=== PATIENT | male | born 1945 | race Caucasian/White ===

== ENCOUNTER → 2017-04-17 | Outpatient (CLI) | payer MEDICARE ==
[~2017-04-17] VITALS: Ht 172.7 cm; Wt 135.2 kg
[~2017-04-17] MED LIST: ALLO100T PO; ALLO10TA PO; AMLO10TA2 PO; ASPI81TA7 PO; ATOR1TAB19 PO; CENTTAB47 PO; GLIP10TA13 PO; LANTINJ4 SC; LIDOCAINE 2% INJ 100 MG/5 ML SDV (FOR ANES.) As Ordered ONE; LISI40TAB PO; METF500T PO; METO-209 PO; METO100T PO; NS 1,000 ML IV ONE; PROPOFOL 200 MG/20 ML VIAL As Ordered ONE
--- NOTE | 2017-04-17 09:52 | ROOR ---
Patient Name: Isacc Nichols Procedure Date: 04/17/2017 9:29 AM Date of : 1945 Age: 71 Room: [facility] Gender: Male Note Status: Finalized Procedure: Total Colonoscopy to Cecum Indications: High risk colon cancer surveillance: Personal history of colonic polyps, Last colonoscopy: 2014 Providers: Tayo Vargas MD Referring MD: Epi Mcgregor MD Requesting Provider: Medicines: Monitored Anesthesia Care Complications: No immediate complications. Procedure: Pre-Anesthesia Assessment: - The heart rate, respiratory rate, oxygen saturations, blood pressure, adequacy of pulmonary ventilation, and response to care were monitored throughout the procedure. The Colonoscope was introduced through the anus and advanced to the cecum, identified by appendiceal orifice and ileocecal valve. The colonoscopy was performed without difficulty. The patient tolerated the procedure well. The quality of the bowel preparation was excellent. Findings: The perianal and digital rectal examinations were normal. Non-bleeding internal hemorrhoids were found during retroflexion. The hemorrhoids were small and Grade I (internal hemorrhoids that do not prolapse). Scattered small-mouthed diverticula were found in the recto-sigmoid colon, sigmoid colon and descending colon. The exam was otherwise without abnormality on direct and retroflexion views. Impression: - Non-bleeding internal hemorrhoids. - Diverticulosis in the recto-sigmoid colon, in the sigmoid colon and in the descending colon. - The examination was otherwise normal on direct and retroflexion views. - No specimens collected. - The exam was otherwise normal to the cecum. Recommendation: - Patient has a contact number available for emergencies. The signs and symptoms of potential delayed complications were discussed with the patient. Return to normal activities tomorrow. Written discharge instructions were provided to the patient. - High fiber diet. - Discharge patient to home. - Continue present medications. - Repeat colonoscopy in 5 years for screening purposes. - Return to referring physician. - The findings and recommendations were discussed with the patient's family. Tayo Vargas MD Tayo Vargas MD 04/17/2017 9:52:37 AM This report has been signed electronically. Number of Addenda: 0 Note Initiated On: 04/17/2017 9:29 AM Estimated Blood Loss: Estimated blood loss: none.
[2017-04-17 10:10] VITALS: BP 133/61
== END | disposition home or self-care (01) ==
LOC: M OPP 08:43
PROVIDERS: ATTEND Internal Medicine Gastroenterology
DX: Z12.11 Encounter for screening for malignant neoplasm of colon (principal); K64.0 First degree hemorrhoids; K57.30 Diverticulosis of large intestine without perforation or abscess without bleeding; Z86.010 Personal history of colon polyps; I10 Essential (primary) hypertension; E78.5 Hyperlipidemia, unspecified; E11.9 Type 2 diabetes mellitus without complications; M10.9 Gout, unspecified; R12 Heartburn; R06.83 Snoring; Z88.8 Allergy status to other drugs, medicaments and biological substances; Z91.013 Allergy to seafood; Z79.899 Other long term (current) drug therapy; Z79.4 Long term (current) use of insulin

== ENCOUNTER 2022-08-29 14:59 | Emergency (ER) | payer MEDICARE ==
[~2022-08-29] VITALS: Ht 170.2 cm; Wt 125.4 kg
[~2022-08-29 14:59] MED LIST changes: -AMLO10TA2 PO; +AMLO1TAB25 PO; +ASPI-546 PO; -ASPI81TA7 PO; -GLIP10TA13 PO; +GLIP10TA18 PO; -LIDOCAINE 2% INJ 100 MG/5 ML SDV (FOR ANES.) As Ordered ONE; +LISI40TA4 PO; +LISI40TA52 PO; -LISI40TAB PO; -METF500T PO; +METF500T13 PO; -METO-209 PO; -METO100T PO; +METO100T5 PO; +METO1TAB33 PO; -NS 1,000 ML IV ONE; -PROPOFOL 200 MG/20 ML VIAL As Ordered ONE
[2022-08-29] MEDS ORDERED: JANU100T (15:10)
[2022-08-29] MEDS ORDERED: LIDOCAINE W/EPINEPHRINE 1% 20ML VIAL SC ONE (19:40)
[2022-08-29] MEDS ORDERED: CEPHALEXIN 500 MG CAP PO ONE (20:05)
[2022-08-29] MEDS ORDERED: CEPH500C PO (20:05)
[2022-08-29] MEDS ORDERED: NEOSPORIN OINT 0.9 GM PKT TOP ONE (20:05)
[2022-08-29] MEDS ORDERED: BOOSTRIX/ADACEL VACCINE (DIPHTH/PERTUSS/ACELL/TETANUS) 0.5ML SYR IM ONE (20:05)
[2022-08-29 20:49] VITALS: BP 158/83
== END 2022-08-29 20:26 | disposition home or self-care (01) ==
LOC: M ED 14:59
DX: S51.012A Laceration without foreign body of left elbow, initial encounter (principal); W01.0XXA Fall on same level from slipping, tripping and stumbling without subsequent striking against object, initial encounter; E11.9 Type 2 diabetes mellitus without complications; I10 Essential (primary) hypertension; E66.9 Obesity, unspecified; Z88.6 Allergy status to analgesic agent; Z91.013 Allergy to seafood; Y92.480 Sidewalk as the place of occurrence of the external cause; Y93.9 Activity, unspecified; Y99.9 Unspecified external cause status

== ENCOUNTER → 2022-11-09 | Outpatient (CLI) | payer MEDICARE ==
[~2022-11-09] MED LIST changes: +CEPH500C PO; +JANU100T
== END ==
LOC: M PLARAD 12:49
PROVIDERS: ATTEND Nurse Practitioner
DX: M47.896 Other spondylosis, lumbar region (principal); M51.26 Other intervertebral disc displacement, lumbar region; M51.27 Other intervertebral disc displacement, lumbosacral region

== ENCOUNTER → 2022-11-30 | Outpatient (REF) | payer MEDICARE | LOC: M SMT 13:17 | PROVIDERS: ATTEND Urology | DX: C61 Malignant neoplasm of prostate (principal) ==

== ENCOUNTER 2022-12-30 03:56 | Inpatient (IN) | payer MEDICARE ==
[~2022-12-30] VITALS: Ht 167.6 cm; Wt 135.4 kg
[~2022-12-30 03:56] MED LIST changes: -JANU100T; +JANU100T PO
[2022-12-30 04:55] LABS: BASO % 0.2 % (0.0-1.0); EOS # 0.2 10^3/uL (0.0-0.5); EOS % 0.8 % (0.0-3.0); HEMATOCRIT 36.9 % (42.0-52.0); HEMOGLOBIN 11.9 g/dl (13.5-17.5); LYMPH # 0.9 10^3/uL (1.5-5.0); LYMPH % 5.2 % (24.0-44.0); MEAN CORPUSCULAR HEMOGLOBIN 28.7 pg (27.0-33.0); MEAN CORPUSCULAR HGB CONC 32.2 g/dl (32.0-36.5); MEAN CORPUSCULAR VOLUME 89.1 fl (80.0-96.0); MONO % 9.3 % (2.0-8.0); PLATELET COUNT, AUTOMATED 271 10^3/uL (150-450); RED BLOOD COUNT 4.14 10^6/uL (4.30-6.10); WHITE BLOOD COUNT 17.9 10^3/uL (4.0-10.0)
[2022-12-30 05:09] LABS: MONO # 1.7 10^3/uL (0.0-0.8)
[2022-12-30 05:31] LABS: CK-MB VALUE MASS < 1.0 NG/ML (<3.6)
[2022-12-30 05:32] LABS: ALBUMIN 2.6 G/DL (3.2-5.2); ALKALINE PHOSPHATASE 93 U/L (46-116); ALT/SGPT 22 U/L (7.0-40); AST/SGOT 30 U/L (<34); BILIRUBIN,TOTAL 0.7 MG/DL (0.3-1.2); BLOOD UREA NITROGEN 52 MG/DL (9-23); CALCIUM LEVEL 8.2 MG/DL (8.3-10.6); CARBON DIOXIDE LEVEL 29 MMOL/L (20-31); CHLORIDE LEVEL 102 MMOL/L (98-107); CREATININE FOR GFR 2.49 MG/DL (0.70-1.30); GLOMERULAR FILTRATION RATE 26.9 (>42); GLUCOSE, FASTING 167 MG/DL (74-106); MAGNESIUM LEVEL 2.1 MG/DL (1.8-2.4); POTASSIUM SERUM 4.3 MMOL/L (3.5-5.1); SODIUM LEVEL 137 MMOL/L (136-145); TOTAL PROTEIN 6.2 G/DL (5.7-8.2)
[2022-12-30 05:33] LABS: CPK CREATINE PHOSPHOKINASE 60 U/L (46-171); MB/CK RELATIVE INDEX 1.66 (< OR =4)
[2022-12-30] MEDS ORDERED: FUROSEMIDE 20MG/2ML VIAL IV ONE (06:25)
[2022-12-30 09:18] LABS: RSV AMPLIFICATION NEGATIVE (NEGATIVE)
[2022-12-30] MEDS ORDERED: GLUCAGON INJ 1MG VIAL SC PRN (10:55)
[2022-12-30] MEDS ORDERED: DEXTROSE 50% 50ML SYRINGE IV PRN (10:55)
[2022-12-30] MEDS ORDERED: GLUCOSE 4GM CHEW TABLET PO PRN (10:55)
[2022-12-30] MEDS ORDERED: FURO20TA2 PO (11:31)
[2022-12-30] MEDS ORDERED: HYDR12.55 PO (11:31)
[2022-12-30] MEDS ORDERED: METO100T5 PO (11:31)
[2022-12-30] MEDS ORDERED: TIZA10TA PO (11:31)
[2022-12-30] MEDS ORDERED: ATOR1TAB21 PO (11:31)
[2022-12-30] MEDS ORDERED: PREG100C PO (11:31)
[2022-12-30] MEDS ORDERED: HOME MED LIST COMPLETE! XX SCH (11:40)
[2022-12-30] MEDS: LR 1,000 ML IV SCH ×2 (12:25→21:40)
[2022-12-30 12:52] VITALS: BP 120/72
[2022-12-30] MEDS: ASPIRIN 81MG ENTERIC TABLET PO SCH (13:54)
[2022-12-30] MEDS: INSULIN LISPRO (NovoLOG) PER UNIT SC SCH ×3 (13:55→21:00)
[2022-12-30] MEDS: METOPROLOL TARTRATE 100MG TAB PO SCH ×2 (13:56→21:40)
[2022-12-30] MEDS: PREGABALIN 100 MG CAP (LYRICA) PO SCH ×2 (16:39→21:40)
[2022-12-30 18:00] VITALS: BP 120/73
[2022-12-30 20:20] VITALS: BP 114/60
[2022-12-30] MEDS ORDERED: ACETAMINOPHEN TAB 650MG DOSE (2X325MG) PO PRN (20:25)
[2022-12-30] MEDS: LEVEMIR (INSULIN DETEMIR) 1 UNITS/0.01ML SC SCH (21:00)
[2022-12-30] MEDS ORDERED: LEVEMIR (INSULIN DETEMIR) 1 UNITS/0.01ML SC ONE (21:00)
[2022-12-30] MEDS: HEPARIN SOD (PORCINE) 5000UNITS/ML 1ML VIAL/SYRINGE SC SCH (21:29)
[2022-12-30 21:30] VITALS: BP 128/70
[2022-12-30] MEDS: tiZANidine 4 MG TAB PO SCH (21:40)
[2022-12-30] MEDS: ATORVASTATIN 20 MG TAB PO SCH (21:40)
[2022-12-30 23:54] VITALS: BP 104/53
[2022-12-31 02:00] VITALS: BP 103/53
[2022-12-31 04:05] VITALS: BP 130/71
[2022-12-31 04:38] LABS: ABG BASE EXCESS 3.1 (-2.0-2.0); ABG HCO3 27.5 MEQ/L (22.0-26.0); ABG O2 SATURATION 97.5 % (95.0-99.0); ABG PARTIAL PRESSURE CO2 41.3 mmHg (35.0-45.0); ABG PARTIAL PRESSURE O2 101.3 mmHg (75.0-100.0); ABG STANDARD HCO3 27.2 MEQ/L (22.0-26.0); ABG TOTAL CO2 28.8 MEQ/L (23.0-31.0); ABG pH (ARTERIAL) 7.441 UNITS (7.350-7.450)
[2022-12-31 05:33] LABS: HEMATOCRIT 36.6 % (42.0-52.0); HEMOGLOBIN 11.7 g/dl (13.5-17.5); MEAN CORPUSCULAR HEMOGLOBIN 28.7 pg (27.0-33.0); MEAN CORPUSCULAR VOLUME 89.9 fl (80.0-96.0); PLATELET COUNT, AUTOMATED 250 10^3/uL (150-450); RED BLOOD COUNT 4.07 10^6/uL (4.30-6.10); WHITE BLOOD COUNT 11.6 10^3/uL (4.0-10.0)
[2022-12-31 05:42] VITALS: BP 110/63
[2022-12-31 05:45] LABS: INR 1.21; PROTHROMBIN TIME 15.6 SECONDS (12.5-14.5)
[2022-12-31 05:46] LABS: PARTIAL THROMBOPLASTIN TIME 34.8 SECONDS (24.8-34.2)
[2022-12-31 05:58] LABS: CREATININE FOR GFR 2.16 MG/DL (0.70-1.30); GLOMERULAR FILTRATION RATE 31.7 (>42); POTASSIUM SERUM 3.9 MMOL/L (3.5-5.1)
[2022-12-31] MEDS: NYSTATIN 100,000 UNITS/GM TOPICAL PWD 15GM TOP SCH ×2 (06:47→21:48)
[2022-12-31] MEDS: HEPARIN SOD (PORCINE) 5000UNITS/ML 1ML VIAL/SYRINGE SC SCH ×3 (06:50→21:48)
[2022-12-31] MEDS: INSULIN LISPRO (NovoLOG) PER UNIT SC SCH ×4 (11:47→21:00)
[2022-12-31 11:49] LABS: CHOLESTEROL RISK RATIO 3.95 (<5); HDL CHOLESTEROL 27.8 MG/DL (>40); LDL CHOLESTEROL 70.2 MG/DL (<100)
[2022-12-31 12:24] LABS: HEMOGLOBIN A1c 7.3 % (4.0-6.0)
[2022-12-31] MEDS: PREGABALIN 100 MG CAP (LYRICA) PO SCH ×2 (13:16→21:49)
[2022-12-31] MEDS: ASPIRIN 81MG ENTERIC TABLET PO SCH (13:17)
[2022-12-31] MEDS: METOPROLOL TARTRATE 100MG TAB PO SCH ×2 (13:20→21:50)
[2022-12-31] MEDS: LEVEMIR (INSULIN DETEMIR) 1 UNITS/0.01ML SC SCH ×2 (13:21→21:48)
[2022-12-31] MEDS: LR 1,000 ML IV SCH (13:22)
[2022-12-31] MEDS ORDERED: LR 500 ML IV ONE (14:00)
[2022-12-31 20:45] VITALS: BP 117/69
[2022-12-31] MEDS: tiZANidine 4 MG TAB PO SCH (21:00)
[2022-12-31] MEDS: ATORVASTATIN 20 MG TAB PO SCH (21:48)
[2023-01-01] VITALS (9 sets, daily range): BP systolic 112–142; BP diastolic 60–77
[2023-01-01] MEDS: HEPARIN SOD (PORCINE) 5000UNITS/ML 1ML VIAL/SYRINGE SC SCH ×3 (05:18→21:30)
[2023-01-01 06:29] LABS: BASO % 0.4 % (0.0-1.0); EOS # 0.4 10^3/uL (0.0-0.5); EOS % 3.6 % (0.0-3.0); HEMATOCRIT 36.4 % (42.0-52.0); HEMOGLOBIN 11.4 g/dl (13.5-17.5); LYMPH # 1.1 10^3/uL (1.5-5.0); LYMPH % 10.5 % (24.0-44.0); MEAN CORPUSCULAR HEMOGLOBIN 28.7 pg (27.0-33.0); MEAN CORPUSCULAR HGB CONC 31.3 g/dl (32.0-36.5); MEAN CORPUSCULAR VOLUME 91.7 fl (80.0-96.0); MONO # 0.8 10^3/uL (0.0-0.8); MONO % 8.4 % (2.0-8.0); NEUTROPHILS # 7.7 10^3/uL (1.5-8.5); NEUTROPHILS % 76.4 % (36.0-66.0); PLATELET COUNT, AUTOMATED 264 10^3/uL (150-450); RED BLOOD COUNT 3.97 10^6/uL (4.30-6.10)
[2023-01-01 06:59] LABS: BLOOD UREA NITROGEN 30 MG/DL (9-23); CALCIUM LEVEL 7.8 MG/DL (8.3-10.6); CARBON DIOXIDE LEVEL 31 MMOL/L (20-31); CHLORIDE LEVEL 107 MMOL/L (98-107); GLOMERULAR FILTRATION RATE > 60.0 (>42); GLUCOSE, FASTING 145 MG/DL (74-106); SODIUM LEVEL 144 MMOL/L (136-145)
[2023-01-01] MEDS: ASPIRIN 81MG ENTERIC TABLET PO SCH (09:14)
[2023-01-01] MEDS: LEVEMIR (INSULIN DETEMIR) 1 UNITS/0.01ML SC SCH ×2 (09:14→21:30)
[2023-01-01] MEDS: INSULIN LISPRO (NovoLOG) PER UNIT SC SCH ×4 (09:14→21:00)
[2023-01-01] MEDS: PREGABALIN 100 MG CAP (LYRICA) PO SCH ×2 (09:15→21:30)
[2023-01-01] MEDS: METOPROLOL TARTRATE 100MG TAB PO SCH ×2 (09:16→21:34)
[2023-01-01] MEDS: NYSTATIN 100,000 UNITS/GM TOPICAL PWD 15GM TOP SCH ×2 (09:17→21:31)
[2023-01-01 18:43] LABS: APPEARANCE, URINE HAZY (CLEAR); BACTERIA, URINE AUTO NEGATIVE (NEGATIVE); BILIRUBIN, URINE AUTO NEGATIVE (NEGATIVE); BLOOD, URINE BLOOD 3+ (NEGATIVE); COLOR, URINE RED (YELLOW); GLUCOSE, URINE (UA) AUTO 1+ mg/dL (NEGATIVE); KETONE, URINE AUTO NEGATIVE (NEGATIVE); LEUKOCYTE ESTERASE, URINE AUTO NEGATIVE (NEGATIVE); NITRITE, URINE AUTO NEGATIVE (NEGATIVE); PROTEIN, URINE AUTO 3+ mg/dL (NEGATIVE); RBC, URINE AUTO TNTC /HPF (0-3); SPECIFIC GRAVITY URINE AUTO 1.015 (1.002-1.035); SQUAMOUS EPITHELIAL CELL UR AU 1 /HPF (0-6); UROBILINOGEN, URINE AUTO 0.2 mg/dL (0.0-2.0); WBC, URINE AUTO 14 /HPF (0-3)
[2023-01-01] MEDS: tiZANidine 4 MG TAB PO SCH ×2 (21:00→21:29)
[2023-01-01] MEDS: ATORVASTATIN 20 MG TAB PO SCH (21:29)
[2023-01-02 02:00] VITALS: BP 138/70
[2023-01-02] MEDS: HEPARIN SOD (PORCINE) 5000UNITS/ML 1ML VIAL/SYRINGE SC SCH ×2 (05:43→13:17)
[2023-01-02 07:19] VITALS: BP 133/80
[2023-01-02 08:25] LABS: HEMATOCRIT 36.3 % (42.0-52.0); HEMOGLOBIN 11.6 g/dl (13.5-17.5); MEAN CORPUSCULAR HEMOGLOBIN 29.1 pg (27.0-33.0); PLATELET COUNT, AUTOMATED 287 10^3/uL (150-450); RED BLOOD COUNT 3.99 10^6/uL (4.30-6.10); WHITE BLOOD COUNT 10.1 10^3/uL (4.0-10.0)
[2023-01-02 08:39] LABS: BLOOD UREA NITROGEN 17 MG/DL (9-23); CALCIUM LEVEL 8.2 MG/DL (8.3-10.6); CARBON DIOXIDE LEVEL 31 MMOL/L (20-31); CHLORIDE LEVEL 106 MMOL/L (98-107); CREATININE FOR GFR 0.83 MG/DL (0.70-1.30); GLOMERULAR FILTRATION RATE > 60.0 (>42); GLUCOSE, FASTING 207 MG/DL (74-106); POTASSIUM SERUM 3.8 MMOL/L (3.5-5.1); SODIUM LEVEL 144 MMOL/L (136-145)
[2023-01-02] MEDS: ASPIRIN 81MG ENTERIC TABLET PO SCH (09:01)
[2023-01-02] MEDS: INSULIN LISPRO (NovoLOG) PER UNIT SC SCH ×4 (09:02→21:00)
[2023-01-02] MEDS: LEVEMIR (INSULIN DETEMIR) 1 UNITS/0.01ML SC SCH ×2 (09:02→21:05)
[2023-01-02] MEDS: PREGABALIN 100 MG CAP (LYRICA) PO SCH ×2 (09:02→21:02)
[2023-01-02] MEDS: NYSTATIN 100,000 UNITS/GM TOPICAL PWD 15GM TOP SCH ×2 (09:03→21:06)
[2023-01-02] MEDS: METOPROLOL TARTRATE 100MG TAB PO SCH ×2 (09:04→21:05)
[2023-01-02 10:00] VITALS: BP 147/85
[2023-01-02] MEDS: CEFDINIR 300 MG CAP (OMNICEF) PO SCH ×2 (11:07→21:02)
[2023-01-02] MEDS ORDERED: METO100T5 PO (12:34)
[2023-01-02] MEDS ORDERED: PREG100C PO (12:34)
[2023-01-02] MEDS ORDERED: CEFD300CAP PO (12:34)
[2023-01-02 14:00] VITALS: BP 137/81
[2023-01-02] MEDS ORDERED: ISOVUE-370 76% 100ML VIAL As Ordered ONE (17:22)
[2023-01-02] MEDS: FUROSEMIDE 20 MG TAB PO SCH (17:44)
[2023-01-02 18:00] VITALS: BP 131/76
[2023-01-02] MEDS: DAPAGLIFLOZIN PROPANEDIOL 10MG TABLET (FARXIGA) PO SCH (18:11)
[2023-01-02 20:00] VITALS: BP 129/74
[2023-01-02] MEDS ORDERED: RIVAROXABAN 10MG TAB (XARELTO) PO SCH (21:00)
[2023-01-02] MEDS: ATORVASTATIN 20 MG TAB PO SCH (21:02)
[2023-01-02] MEDS: APIXABAN 5 MG TAB (ELIQUIS) PO SCH (21:02)
[2023-01-03 02:00] VITALS: BP 128/71
[2023-01-03 06:00] VITALS: BP 132/81
[2023-01-03 06:03] LABS: BASO # 0.1 10^3/uL (0.0-0.2); BASO % 0.5 % (0.0-1.0); EOS # 0.6 10^3/uL (0.0-0.5); EOS % 5.9 % (0.0-3.0); HEMATOCRIT 35.8 % (42.0-52.0); HEMOGLOBIN 11.6 g/dl (13.5-17.5); LYMPH # 1.4 10^3/uL (1.5-5.0); LYMPH % 14.6 % (24.0-44.0); MEAN CORPUSCULAR HEMOGLOBIN 29.2 pg (27.0-33.0); MEAN CORPUSCULAR HGB CONC 32.4 g/dl (32.0-36.5); MEAN CORPUSCULAR VOLUME 90.2 fl (80.0-96.0); MONO # 0.8 10^3/uL (0.0-0.8); MONO % 7.7 % (2.0-8.0); NEUTROPHILS % 70.8 % (36.0-66.0); PLATELET COUNT, AUTOMATED 281 10^3/uL (150-450); RED BLOOD COUNT 3.97 10^6/uL (4.30-6.10); WHITE BLOOD COUNT 9.9 10^3/uL (4.0-10.0)
[2023-01-03 06:33] LABS: BLOOD UREA NITROGEN 15 MG/DL (9-23); CARBON DIOXIDE LEVEL 30 MMOL/L (20-31); CHLORIDE LEVEL 106 MMOL/L (98-107); GLOMERULAR FILTRATION RATE > 60.0 (>42); GLUCOSE, FASTING 132 MG/DL (74-106); POTASSIUM SERUM 3.7 MMOL/L (3.5-5.1); SODIUM LEVEL 144 MMOL/L (136-145)
[2023-01-03] MEDS: DAPAGLIFLOZIN PROPANEDIOL 10MG TABLET (FARXIGA) PO SCH (08:34)
[2023-01-03] MEDS: CEFDINIR 300 MG CAP (OMNICEF) PO SCH ×2 (08:34→21:17)
[2023-01-03] MEDS: PREGABALIN 100 MG CAP (LYRICA) PO SCH ×2 (08:34→21:16)
[2023-01-03] MEDS: INSULIN LISPRO (NovoLOG) PER UNIT SC SCH ×4 (08:35→21:00)
[2023-01-03] MEDS: APIXABAN 5 MG TAB (ELIQUIS) PO SCH ×2 (08:35→21:17)
[2023-01-03] MEDS: FUROSEMIDE 20 MG TAB PO SCH (08:35)
[2023-01-03] MEDS: ASPIRIN 81MG ENTERIC TABLET PO SCH (08:35)
[2023-01-03] MEDS: NYSTATIN 100,000 UNITS/GM TOPICAL PWD 15GM TOP SCH ×2 (08:36→21:18)
[2023-01-03] MEDS: LEVEMIR (INSULIN DETEMIR) 1 UNITS/0.01ML SC SCH ×2 (08:36→21:18)
[2023-01-03] MEDS: METOPROLOL TARTRATE 100MG TAB PO SCH ×2 (08:38→21:18)
[2023-01-03 10:00] VITALS: BP 140/81
[2023-01-03 14:00] VITALS: BP_SYST 115; BP_SYST 128; BP_DIAS 66; BP_DIAS 68
[2023-01-03] MEDS ORDERED: NON-FORMULARY 1 EA EA IM ONE (14:40)
[2023-01-03 15:19] LABS: TESTOSTERONE 285 NG/DL (241-827)
[2023-01-03] MEDS ORDERED: LEUPROLIDE 7.5 MG IM ONE (17:00)
[2023-01-03] MEDS: BICALUTAMIDE 50 MG TAB PO SCH (17:49)
[2023-01-03 18:00] VITALS: BP 128/82
[2023-01-03] MEDS: ATORVASTATIN 20 MG TAB PO SCH (21:17)
[2023-01-03 21:20] VITALS: BP 135/82
[2023-01-04 02:00] VITALS: BP 142/74
[2023-01-04 06:00] VITALS: BP 141/74
[2023-01-04 06:10] LABS: BASO # 0.1 10^3/uL (0.0-0.2); BASO % 0.5 % (0.0-1.0); EOS # 0.5 10^3/uL (0.0-0.5); EOS % 4.9 % (0.0-3.0); HEMATOCRIT 35.6 % (42.0-52.0); HEMOGLOBIN 11.2 g/dl (13.5-17.5); LYMPH # 1.5 10^3/uL (1.5-5.0); LYMPH % 14.3 % (24.0-44.0); MEAN CORPUSCULAR HEMOGLOBIN 28.8 pg (27.0-33.0); MEAN CORPUSCULAR HGB CONC 31.5 g/dl (32.0-36.5); MEAN CORPUSCULAR VOLUME 91.5 fl (80.0-96.0); MONO # 0.8 10^3/uL (0.0-0.8); MONO % 7.2 % (2.0-8.0); NEUTROPHILS # 7.8 10^3/uL (1.5-8.5); NEUTROPHILS % 72.6 % (36.0-66.0); PLATELET COUNT, AUTOMATED 266 10^3/uL (150-450); RED BLOOD COUNT 3.89 10^6/uL (4.30-6.10); WHITE BLOOD COUNT 10.7 10^3/uL (4.0-10.0)
[2023-01-04 06:43] LABS: BLOOD UREA NITROGEN 16 MG/DL (9-23); CALCIUM LEVEL 7.6 MG/DL (8.3-10.6); CARBON DIOXIDE LEVEL 33 MMOL/L (20-31); CHLORIDE LEVEL 107 MMOL/L (98-107); CREATININE FOR GFR 0.85 MG/DL (0.70-1.30); GLOMERULAR FILTRATION RATE > 60.0 (>42); GLUCOSE, FASTING 120 MG/DL (74-106); POTASSIUM SERUM 3.8 MMOL/L (3.5-5.1); SODIUM LEVEL 145 MMOL/L (136-145)
[2023-01-04] MEDS: LEVEMIR (INSULIN DETEMIR) 1 UNITS/0.01ML SC SCH ×2 (08:25→22:04)
[2023-01-04] MEDS: NYSTATIN 100,000 UNITS/GM TOPICAL PWD 15GM TOP SCH ×2 (08:26→22:04)
[2023-01-04] MEDS: BICALUTAMIDE 50 MG TAB PO SCH (08:26)
[2023-01-04] MEDS: DAPAGLIFLOZIN PROPANEDIOL 10MG TABLET (FARXIGA) PO SCH (08:26)
[2023-01-04] MEDS: INSULIN LISPRO (NovoLOG) PER UNIT SC SCH ×4 (08:26→21:00)
[2023-01-04] MEDS: ASPIRIN 81MG ENTERIC TABLET PO SCH (08:27)
[2023-01-04] MEDS: PREGABALIN 100 MG CAP (LYRICA) PO SCH ×2 (08:27→22:01)
[2023-01-04] MEDS: APIXABAN 5 MG TAB (ELIQUIS) PO SCH ×2 (08:27→22:01)
[2023-01-04] MEDS: FUROSEMIDE 20 MG TAB PO SCH (08:28)
[2023-01-04] MEDS: CEFDINIR 300 MG CAP (OMNICEF) PO SCH ×2 (08:28→22:01)
[2023-01-04] MEDS: METOPROLOL TARTRATE 100MG TAB PO SCH ×2 (08:31→22:03)
[2023-01-04 10:00] VITALS: BP 121/69
[2023-01-04 14:00] VITALS: BP 119/65
[2023-01-04 18:00] VITALS: BP 144/75
[2023-01-04 20:36] VITALS: BP 111/74
[2023-01-04] MEDS: ATORVASTATIN 20 MG TAB PO SCH (22:01)
[2023-01-05 06:19] VITALS: BP 130/86
[2023-01-05 08:16] LABS: HEMATOCRIT 35.8 % (42.0-52.0); HEMOGLOBIN 11.5 g/dl (13.5-17.5); MEAN CORPUSCULAR HGB CONC 32.1 g/dl (32.0-36.5); MEAN CORPUSCULAR VOLUME 90.4 fl (80.0-96.0); PLATELET COUNT, AUTOMATED 274 10^3/uL (150-450); RED BLOOD COUNT 3.96 10^6/uL (4.30-6.10); WHITE BLOOD COUNT 12.5 10^3/uL (4.0-10.0)
[2023-01-05] MEDS: NYSTATIN 100,000 UNITS/GM TOPICAL PWD 15GM TOP SCH ×2 (08:39→21:46)
[2023-01-05] MEDS: BICALUTAMIDE 50 MG TAB PO SCH (08:39)
[2023-01-05] MEDS: PREGABALIN 100 MG CAP (LYRICA) PO SCH ×2 (08:39→21:45)
[2023-01-05] MEDS: METOPROLOL TARTRATE 100MG TAB PO SCH ×2 (08:40→21:46)
[2023-01-05] MEDS: APIXABAN 5 MG TAB (ELIQUIS) PO SCH ×2 (08:41→21:44)
[2023-01-05] MEDS: DAPAGLIFLOZIN PROPANEDIOL 10MG TABLET (FARXIGA) PO SCH (08:41)
[2023-01-05] MEDS: ASPIRIN 81MG ENTERIC TABLET PO SCH (08:41)
[2023-01-05] MEDS: FUROSEMIDE 20 MG TAB PO SCH (08:41)
[2023-01-05] MEDS: CEFDINIR 300 MG CAP (OMNICEF) PO SCH ×2 (08:41→21:44)
[2023-01-05 08:42] LABS: BLOOD UREA NITROGEN 15 MG/DL (9-23); CALCIUM LEVEL 7.8 MG/DL (8.3-10.6); CARBON DIOXIDE LEVEL 29 MMOL/L (20-31); CHLORIDE LEVEL 105 MMOL/L (98-107); CREATININE FOR GFR 0.78 MG/DL (0.70-1.30); GLOMERULAR FILTRATION RATE > 60.0 (>42); GLUCOSE, FASTING 177 MG/DL (74-106); POTASSIUM SERUM 3.7 MMOL/L (3.5-5.1); SODIUM LEVEL 143 MMOL/L (136-145)
[2023-01-05] MEDS: INSULIN LISPRO (NovoLOG) PER UNIT SC SCH ×4 (08:42→20:57)
[2023-01-05] MEDS: LEVEMIR (INSULIN DETEMIR) 1 UNITS/0.01ML SC SCH ×2 (08:43→21:46)
[2023-01-05 12:28] LABS: APPEARANCE, URINE CLEAR (CLEAR); BACTERIA, URINE AUTO 1+ (NEGATIVE); BILIRUBIN, URINE AUTO NEGATIVE (NEGATIVE); BLOOD, URINE BLOOD 2+ (NEGATIVE); COLOR, URINE YELLOW (YELLOW); GLUCOSE, URINE (UA) AUTO 3+ mg/dL (NEGATIVE); KETONE, URINE AUTO NEGATIVE (NEGATIVE); LEUKOCYTE ESTERASE, URINE AUTO 2+ (NEGATIVE); MUCUS, URINE SMALL (NEGATIVE); NITRITE, URINE AUTO NEGATIVE (NEGATIVE); PROTEIN, URINE AUTO 1+ mg/dL (NEGATIVE); RBC, URINE AUTO 49 /HPF (0-3); SQUAMOUS EPITHELIAL CELL UR AU 0 /HPF (0-6); UROBILINOGEN, URINE AUTO 0.2 mg/dL (0.0-2.0); WBC, URINE AUTO 39 /HPF (0-3)
[2023-01-05] MEDS: ATORVASTATIN 20 MG TAB PO SCH (21:45)
[2023-01-06 06:00] VITALS: BP 164/76
[2023-01-06 06:39] LABS: BASO # 0.1 10^3/uL (0.0-0.2); BASO % 0.6 % (0.0-1.0); EOS # 0.6 10^3/uL (0.0-0.5); HEMATOCRIT 36.7 % (42.0-52.0); HEMOGLOBIN 11.2 g/dl (13.5-17.5); LYMPH # 1.5 10^3/uL (1.5-5.0); LYMPH % 12.4 % (24.0-44.0); MEAN CORPUSCULAR HGB CONC 30.5 g/dl (32.0-36.5); MEAN CORPUSCULAR VOLUME 91.8 fl (80.0-96.0); MONO # 0.9 10^3/uL (0.0-0.8); MONO % 7.8 % (2.0-8.0); NEUTROPHILS # 8.9 10^3/uL (1.5-8.5); NEUTROPHILS % 73.5 % (36.0-66.0); PLATELET COUNT, AUTOMATED 271 10^3/uL (150-450); WHITE BLOOD COUNT 12.1 10^3/uL (4.0-10.0)
[2023-01-06 07:08] LABS: BLOOD UREA NITROGEN 16 MG/DL (9-23); CALCIUM LEVEL 7.7 MG/DL (8.3-10.6); CARBON DIOXIDE LEVEL 30 MMOL/L (20-31); CHLORIDE LEVEL 106 MMOL/L (98-107); CREATININE FOR GFR 0.84 MG/DL (0.70-1.30); GLOMERULAR FILTRATION RATE > 60.0 (>42); GLUCOSE, FASTING 123 MG/DL (74-106); POTASSIUM SERUM 3.5 MMOL/L (3.5-5.1); SODIUM LEVEL 143 MMOL/L (136-145)
[2023-01-06] MEDS: INSULIN LISPRO (NovoLOG) PER UNIT SC SCH ×5 (08:00→21:00)
[2023-01-06] MEDS: METOPROLOL TARTRATE 100MG TAB PO SCH ×2 (09:34→21:06)
[2023-01-06] MEDS: PREGABALIN 100 MG CAP (LYRICA) PO SCH ×2 (09:34→21:05)
[2023-01-06] MEDS: ASPIRIN 81MG ENTERIC TABLET PO SCH (09:35)
[2023-01-06] MEDS: APIXABAN 5 MG TAB (ELIQUIS) PO SCH ×2 (09:35→21:06)
[2023-01-06] MEDS: FUROSEMIDE 20 MG TAB PO SCH (09:35)
[2023-01-06] MEDS: CEFDINIR 300 MG CAP (OMNICEF) PO SCH ×2 (09:36→21:04)
[2023-01-06] MEDS: LEVEMIR (INSULIN DETEMIR) 1 UNITS/0.01ML SC SCH ×2 (09:36→21:08)
[2023-01-06] MEDS: DAPAGLIFLOZIN PROPANEDIOL 10MG TABLET (FARXIGA) PO SCH (09:36)
[2023-01-06] MEDS: BICALUTAMIDE 50 MG TAB PO SCH (09:36)
[2023-01-06] MEDS: NYSTATIN 100,000 UNITS/GM TOPICAL PWD 15GM TOP SCH ×2 (09:38→21:08)
[2023-01-06] MEDS: lisinopriL 40MG TAB PO SCH (10:36)
[2023-01-06] MEDS: hydroCHLOROthiazide 12.5 MG CAPSULE PO SCH (10:36)
[2023-01-06] MEDS: ATORVASTATIN 20 MG TAB PO SCH (21:05)
[2023-01-07 06:00] VITALS: BP 140/81
[2023-01-07] MEDS: INSULIN LISPRO (NovoLOG) PER UNIT SC SCH ×5 (08:00→20:39)
[2023-01-07] MEDS: LEVEMIR (INSULIN DETEMIR) 1 UNITS/0.01ML SC SCH ×2 (09:18→20:35)
[2023-01-07] MEDS: DAPAGLIFLOZIN PROPANEDIOL 10MG TABLET (FARXIGA) PO SCH (09:19)
[2023-01-07] MEDS: BICALUTAMIDE 50 MG TAB PO SCH (09:19)
[2023-01-07] MEDS: CEFDINIR 300 MG CAP (OMNICEF) PO SCH (09:20)
[2023-01-07] MEDS: ASPIRIN 81MG ENTERIC TABLET PO SCH (09:20)
[2023-01-07] MEDS: APIXABAN 5 MG TAB (ELIQUIS) PO SCH ×2 (09:21→20:34)
[2023-01-07] MEDS: METOPROLOL TARTRATE 100MG TAB PO SCH ×2 (09:21→20:33)
[2023-01-07] MEDS: hydroCHLOROthiazide 12.5 MG CAPSULE PO SCH (09:21)
[2023-01-07] MEDS: lisinopriL 40MG TAB PO SCH (09:21)
[2023-01-07] MEDS: FUROSEMIDE 40 MG TAB PO SCH (09:22)
[2023-01-07] MEDS: PREGABALIN 100 MG CAP (LYRICA) PO SCH ×2 (09:22→20:33)
[2023-01-07] MEDS: NYSTATIN 100,000 UNITS/GM TOPICAL PWD 15GM TOP SCH ×2 (09:22→20:35)
[2023-01-07 20:33] VITALS: BP 134/70
[2023-01-07] MEDS: ATORVASTATIN 20 MG TAB PO SCH (20:34)
[2023-01-07 21:00] VITALS: BP 134/70
[2023-01-08 05:00] VITALS: BP 145/75
[2023-01-08 08:00] VITALS: BP 132/72
[2023-01-08] MEDS: ASPIRIN 81MG ENTERIC TABLET PO SCH (08:03)
[2023-01-08] MEDS: INSULIN LISPRO (NovoLOG) PER UNIT SC SCH ×3 (08:03→12:40)
[2023-01-08] MEDS: APIXABAN 5 MG TAB (ELIQUIS) PO SCH (08:04)
[2023-01-08] MEDS: hydroCHLOROthiazide 12.5 MG CAPSULE PO SCH (08:04)
[2023-01-08] MEDS: BICALUTAMIDE 50 MG TAB PO SCH (08:05)
[2023-01-08] MEDS: DAPAGLIFLOZIN PROPANEDIOL 10MG TABLET (FARXIGA) PO SCH (08:05)
[2023-01-08] MEDS: lisinopriL 40MG TAB PO SCH (08:05)
[2023-01-08] MEDS: METOPROLOL TARTRATE 100MG TAB PO SCH (08:05)
[2023-01-08] MEDS: FUROSEMIDE 40 MG TAB PO SCH (08:05)
[2023-01-08] MEDS: PREGABALIN 100 MG CAP (LYRICA) PO SCH (08:05)
[2023-01-08] MEDS: NYSTATIN 100,000 UNITS/GM TOPICAL PWD 15GM TOP SCH (08:06)
[2023-01-08] MEDS: LEVEMIR (INSULIN DETEMIR) 1 UNITS/0.01ML SC SCH (09:37)
[2023-01-08] MEDS ORDERED: FURO40TA2 PO (11:27)
[2023-01-08] MEDS ORDERED: LOPR1TAB7 PO (11:27)
[2023-01-08] MEDS ORDERED: ELIQ5TAB PO (11:35)
[2023-01-08] MEDS ORDERED: FARX1TAB3 PO (11:35)
[2023-01-08] MEDS ORDERED: INSUDET SC (11:35)
[2023-01-08] MEDS ORDERED: BICA50TA9 PO (11:36)
[2023-01-08] MEDS ORDERED: INSUHUMDS SC ×2 (12:05)
[2023-01-09] MEDS ORDERED: APIXABAN 5 MG TAB (ELIQUIS) PO SCH (21:00)
== END 2023-01-08 13:45 | DRG 698 ==
LOC: M ED 03:56 → EDBD 03:56 → M ED INP 10:46 → ENRESERV 11:39 → M MSPAV 12:30
PROVIDERS: ADMIT Internal Medicine; ATTEND Internal Medicine
DX: N13.9 Obstructive and reflux uropathy, unspecified (principal); I26.93 Single subsegmental thrombotic pulmonary embolism without acute cor pulmonale; N17.9 Acute kidney failure, unspecified; G45.9 Transient cerebral ischemic attack, unspecified; I50.32 Chronic diastolic (congestive) heart failure; N13.30 Unspecified hydronephrosis; Z68.42 Body mass index [BMI] 45.0-49.9, adult; E11.9 Type 2 diabetes mellitus without complications; M48.061 Spinal stenosis, lumbar region without neurogenic claudication; D64.9 Anemia, unspecified; C61 Malignant neoplasm of prostate; E78.5 Hyperlipidemia, unspecified; R32 Unspecified urinary incontinence; M54.16 Radiculopathy, lumbar region; R29.6 Repeated falls; M21.372 Foot drop, left foot; M10.9 Gout, unspecified; Z66 Do not resuscitate; N39.0 Urinary tract infection, site not specified; I11.0 Hypertensive heart disease with heart failure; K76.0 Fatty (change of) liver, not elsewhere classified; E66.01 Morbid (severe) obesity due to excess calories; Z79.899 Other long term (current) drug therapy; Z79.82 Long term (current) use of aspirin; Z79.4 Long term (current) use of insulin; Z91.013 Allergy to seafood; Z88.8 Allergy status to other drugs, medicaments and biological substances

== ENCOUNTER → 2023-01-15 | Outpatient (REF) | payer MEDICARE ==
[~2023-01-15] MED LIST changes: +ATOR1TAB21 PO; +BICA50TA9 PO; +CEFD300CAP PO; +ELIQ5TAB PO; +FARX1TAB3 PO; +FURO20TA2 PO; +FURO40TA2 PO; +HYDR12.55 PO; +INSUDET SC; +INSUHUMDS SC; +LOPR1TAB7 PO; +PREG100C PO; +TIZA10TA PO
[2023-01-15 07:14] LABS: HEMATOCRIT 38.6 % (42.0-52.0); HEMOGLOBIN 12.3 g/dl (13.5-17.5); MEAN CORPUSCULAR HEMOGLOBIN 28.7 pg (27.0-33.0); MEAN CORPUSCULAR HGB CONC 31.9 g/dl (32.0-36.5); MEAN CORPUSCULAR VOLUME 90.2 fl (80.0-96.0); PLATELET COUNT, AUTOMATED 268 10^3/uL (150-450); RED BLOOD COUNT 4.28 10^6/uL (4.30-6.10); WHITE BLOOD COUNT 10.9 10^3/uL (4.0-10.0)
[2023-01-15 07:34] LABS: BLOOD UREA NITROGEN 24 MG/DL (9-23); CALCIUM LEVEL 8.5 MG/DL (8.3-10.6); CARBON DIOXIDE LEVEL 32 MMOL/L (20-31); CHLORIDE LEVEL 103 MMOL/L (98-107); CREATININE FOR GFR 0.99 MG/DL (0.70-1.30); GLOMERULAR FILTRATION RATE > 60.0 (>42); GLUCOSE, FASTING 176 MG/DL (74-106); POTASSIUM SERUM 3.7 MMOL/L (3.5-5.1); SODIUM LEVEL 142 MMOL/L (136-145)
== END ==
LOC: SKLAB4 13:30
PROVIDERS: ATTEND Internal Medicine
DX: I63.9 Cerebral infarction, unspecified (principal)

== ENCOUNTER → 2023-02-11 | Outpatient (CLI) | payer MEDICARE ==
[~2023-02-11] MED LIST changes: +APAL240T PO; +PRED5TA PO; +ZYTI250T PO
== END ==
LOC: M PLARAD 09:54
PROVIDERS: ATTEND Internal Medicine Medical Oncology
DX: C61 Malignant neoplasm of prostate (principal)
CPT/HCPCS: 78815; A9552

== ENCOUNTER 2023-06-16 11:00 | Inpatient (IN) | payer MEDICARE, MEDICAID ==
[~2023-06-16] VITALS: Ht 172.7 cm; Wt 126.1 kg
[~2023-06-16 11:00] MED LIST changes: +CALT1TAB PO; +INVO100T PO; +NITR100C2 PO; +ONETAB32 PO
[2023-06-16] MEDS ORDERED: ACETAMINOPHEN 325 MG TAB PO ONE (11:15)
[2023-06-16] MEDS ORDERED: MED REC IN PROGRESS XX SCH (11:20)
[2023-06-16] MEDS ORDERED: PIPERACILLIN/TAZOBACTAM SOD 4.5 GM in D5W MINI-BAG PLUS 50 ML IV ONE (11:45)
[2023-06-16 11:58] LABS: BASO % 0.4 % (0.0-1.0); EOS # 0.1 10^3/uL (0.0-0.5); EOS % 1.3 % (0.0-3.0); HEMATOCRIT 40.1 % (42.0-52.0); HEMOGLOBIN 13.1 g/dl (13.5-17.5); LYMPH # 0.9 10^3/uL (1.5-5.0); MEAN CORPUSCULAR HGB CONC 32.7 g/dl (32.0-36.5); MEAN CORPUSCULAR VOLUME 88.9 fl (80.0-96.0); MONO # 0.9 10^3/uL (0.0-0.8); MONO % 8.7 % (2.0-8.0); NEUTROPHILS # 8.7 10^3/uL (1.5-8.5); NEUTROPHILS % 81.2 % (36.0-66.0); PLATELET COUNT, AUTOMATED 182 10^3/uL (150-450); RED BLOOD COUNT 4.51 10^6/uL (4.30-6.10); WHITE BLOOD COUNT 10.7 10^3/uL (4.0-10.0)
[2023-06-16 12:27] LABS: ALBUMIN 2.8 G/DL (3.2-5.2); ALKALINE PHOSPHATASE 122 U/L (46-116); ALT/SGPT 16 U/L (7.0-40); AST/SGOT 34 U/L (<34); BILIRUBIN,DIRECT 0.2 MG/DL (<0.4); BILIRUBIN,TOTAL 0.7 MG/DL (0.3-1.2); BLOOD UREA NITROGEN 14 MG/DL (9-23); CALCIUM LEVEL 8.3 MG/DL (8.3-10.6); CARBON DIOXIDE LEVEL 30 MMOL/L (20-31); CHLORIDE LEVEL 104 MMOL/L (98-107); CK-MB VALUE MASS < 1.0 NG/ML (<3.6); CPK CREATINE PHOSPHOKINASE 66 U/L (46-171); CREATININE FOR GFR 0.69 MG/DL (0.70-1.30); GLOMERULAR FILTRATION RATE > 60.0 (>42); GLUCOSE, FASTING 108 MG/DL (74-106); MB/CK RELATIVE INDEX 1.51 (< OR =4); POTASSIUM SERUM 3.9 MMOL/L (3.5-5.1); SODIUM LEVEL 142 MMOL/L (136-145); THYROID STIMULATING HORMONE 3.249 uIU/ML (0.55-4.78); TOTAL PROTEIN 6.6 G/DL (5.7-8.2)
[2023-06-16 12:32] LABS: RSV AMPLIFICATION NEGATIVE (NEGATIVE)
[2023-06-16] MEDS ORDERED: ISOVUE-370 76% 100ML VIAL As Ordered ONE (12:49)
[2023-06-16 13:22] LABS: CK-MB VALUE MASS < 1.0 NG/ML (<3.6)
[2023-06-16 13:28] LABS: CPK CREATINE PHOSPHOKINASE 52 U/L (46-171); MB/CK RELATIVE INDEX 1.92 (< OR =4)
[2023-06-16] MEDS ORDERED: TAMS1CAP17 PO (14:26)
[2023-06-16] MEDS ORDERED: OXYB5TAB10 PO (14:26)
[2023-06-16] MEDS ORDERED: HOME MED LIST COMPLETE! XX SCH (14:35)
[2023-06-16] MEDS ORDERED: MAALOX 30 ML SUSP *UDC PO PRN (16:45)
[2023-06-16] MEDS ORDERED: oxyBUTYnin 5 MG TAB PO PRN (17:50)
[2023-06-16] MEDS ORDERED: GLUCOSE 4GM CHEW TABLET PO PRN (17:50)
[2023-06-16] MEDS ORDERED: DEXTROSE 50% 50ML SYRINGE IV PRN (17:50)
[2023-06-16] MEDS ORDERED: GLUCAGON INJ 1MG VIAL SC PRN (17:50)
[2023-06-16] MEDS ORDERED: PIPERACILLIN/TAZOBACTAM SOD 4.5 GM in D5W MINI-BAG PLUS 50 ML IV SCH (17:55)
[2023-06-16 18:21] LABS: ERYTHROCYTE SEDIMENTATION RATE 50 mm/hr (0-20)
[2023-06-16] MEDS: PIPERACILLIN/TAZOBACTAM SOD 3.375 GM in D5W MINI-BAG PLUS 50 ML IV SCH (20:02)
[2023-06-16] MEDS: lisinopriL 40MG TAB PO SCH (20:03)
[2023-06-16] MEDS: INSULIN LISPRO (NovoLOG) PER UNIT SC SCH (20:19)
[2023-06-16] MEDS: APIXABAN 5 MG TAB (ELIQUIS) PO SCH (20:26)
[2023-06-16] MEDS: ATORVASTATIN 20 MG TAB PO SCH (20:26)
[2023-06-16] MEDS: PREGABALIN 100 MG CAP (LYRICA) PO SCH (20:26)
[2023-06-16] MEDS: METOPROLOL TARTRATE 100MG TAB PO SCH (20:27)
[2023-06-16 21:20] VITALS: BP 166/95; TEMP 98.8; O2SAT 96
[2023-06-17] MEDS: PIPERACILLIN/TAZOBACTAM SOD 3.375 GM in D5W MINI-BAG PLUS 50 ML IV SCH ×4 (00:47→20:09)
[2023-06-17 05:11] VITALS: BP 169/9; TEMP 98.1; O2SAT 92
[2023-06-17 06:37] LABS: BASO # 0.1 10^3/uL (0.0-0.2); BASO % 0.6 % (0.0-1.0); EOS # 0.2 10^3/uL (0.0-0.5); EOS % 2.1 % (0.0-3.0); HEMATOCRIT 37.7 % (42.0-52.0); HEMOGLOBIN 12.2 g/dl (13.5-17.5); LYMPH # 1.1 10^3/uL (1.5-5.0); LYMPH % 13.3 % (24.0-44.0); MEAN CORPUSCULAR HEMOGLOBIN 28.8 pg (27.0-33.0); MEAN CORPUSCULAR HGB CONC 32.4 g/dl (32.0-36.5); MEAN CORPUSCULAR VOLUME 89.1 fl (80.0-96.0); MONO # 0.9 10^3/uL (0.0-0.8); MONO % 11.1 % (2.0-8.0); NEUTROPHILS % 72.7 % (36.0-66.0); PLATELET COUNT, AUTOMATED 173 10^3/uL (150-450); RED BLOOD COUNT 4.23 10^6/uL (4.30-6.10); WHITE BLOOD COUNT 8.3 10^3/uL (4.0-10.0)
[2023-06-17 07:13] LABS: ALBUMIN 2.4 G/DL (3.2-5.2); ALKALINE PHOSPHATASE 104 U/L (46-116); ALT/SGPT 17 U/L (7.0-40); AST/SGOT 21 U/L (<34); BILIRUBIN,TOTAL 0.7 MG/DL (0.3-1.2); BLOOD UREA NITROGEN 12 MG/DL (9-23); CALCIUM LEVEL 7.9 MG/DL (8.3-10.6); CARBON DIOXIDE LEVEL 30 MMOL/L (20-31); CHLORIDE LEVEL 103 MMOL/L (98-107); CREATININE FOR GFR 0.75 MG/DL (0.70-1.30); GLOMERULAR FILTRATION RATE > 60.0 (>42); GLUCOSE, FASTING 118 MG/DL (74-106); MAGNESIUM LEVEL 1.8 MG/DL (1.8-2.4); POTASSIUM SERUM 2.7 MMOL/L (3.5-5.1); SODIUM LEVEL 141 MMOL/L (136-145); TOTAL PROTEIN 5.7 G/DL (5.7-8.2)
[2023-06-17] MEDS: TAMSULOSIN 0.4 MG CAP PO SCH (08:20)
[2023-06-17] MEDS: ASPIRIN 81MG ENTERIC TABLET PO SCH (08:20)
[2023-06-17] MEDS: PREGABALIN 100 MG CAP (LYRICA) PO SCH ×2 (08:20→20:08)
[2023-06-17] MEDS: lisinopriL 40MG TAB PO SCH (08:20)
[2023-06-17] MEDS: METOPROLOL TARTRATE 100MG TAB PO SCH ×2 (08:21→20:08)
[2023-06-17] MEDS: APIXABAN 5 MG TAB (ELIQUIS) PO SCH ×2 (08:21→20:09)
[2023-06-17] MEDS: POTASSIUM CHLORIDE 10MEQ SR TABLET PO SCH ×2 (08:22→20:08)
[2023-06-17] MEDS: LEVEMIR (INSULIN DETEMIR) 1 UNITS/0.01ML SC SCH (08:23)
[2023-06-17] MEDS: INSULIN LISPRO (NovoLOG) PER UNIT SC SCH ×4 (08:24→20:24)
[2023-06-17] MEDS: KCL 10MEQ/100ML SWI (KRUN) 10 MEQ in IV 1 EA IV SCH ×3 (08:24→13:14)
[2023-06-17 13:16] LABS: BLOOD UREA NITROGEN 13 MG/DL (9-23); CALCIUM LEVEL 8.1 MG/DL (8.3-10.6); CARBON DIOXIDE LEVEL 30 MMOL/L (20-31); CHLORIDE LEVEL 104 MMOL/L (98-107); CREATININE FOR GFR 0.81 MG/DL (0.70-1.30); GLOMERULAR FILTRATION RATE > 60.0 (>42); GLUCOSE, FASTING 131 MG/DL (74-106); POTASSIUM SERUM 3.1 MMOL/L (3.5-5.1); SODIUM LEVEL 142 MMOL/L (136-145)
[2023-06-17 14:00] VITALS: BP 149/87; TEMP 98.8; O2SAT 93
[2023-06-17] MEDS: ACETAMINOPHEN TAB 650MG DOSE (2X325MG) PO PRN (15:16)
[2023-06-17] MEDS ORDERED: KCL 10MEQ/100ML SWI (KRUN) 10 MEQ in IV 1 EA IV ONE (17:15)
[2023-06-17 20:04] VITALS: BP 153/85; TEMP 97.6
[2023-06-17] MEDS: ATORVASTATIN 20 MG TAB PO SCH (20:08)
[2023-06-18] MEDS: PIPERACILLIN/TAZOBACTAM SOD 3.375 GM in D5W MINI-BAG PLUS 50 ML IV SCH ×2 (00:47→06:11)
[2023-06-18 06:08] VITALS: BP 170/96; TEMP 99; O2SAT 90
[2023-06-18 06:17] VITALS: BP 170/90
[2023-06-18] MEDS: METOPROLOL TARTRATE 100MG TAB PO SCH ×2 (06:25→20:18)
[2023-06-18] MEDS: lisinopriL 40MG TAB PO SCH (06:26)
[2023-06-18] MEDS: ACETAMINOPHEN TAB 650MG DOSE (2X325MG) PO PRN (06:28)
[2023-06-18 06:46] LABS: BASO % 0.4 % (0.0-1.0); EOS # 0.4 10^3/uL (0.0-0.5); EOS % 3.9 % (0.0-3.0); HEMATOCRIT 38.5 % (42.0-52.0); HEMOGLOBIN 12.5 g/dl (13.5-17.5); LYMPH # 0.9 10^3/uL (1.5-5.0); LYMPH % 7.9 % (24.0-44.0); MEAN CORPUSCULAR HGB CONC 32.5 g/dl (32.0-36.5); MEAN CORPUSCULAR VOLUME 89.3 fl (80.0-96.0); MONO % 9.3 % (2.0-8.0); NEUTROPHILS # 8.4 10^3/uL (1.5-8.5); NEUTROPHILS % 78.1 % (36.0-66.0); PLATELET COUNT, AUTOMATED 174 10^3/uL (150-450); RED BLOOD COUNT 4.31 10^6/uL (4.30-6.10); WHITE BLOOD COUNT 10.8 10^3/uL (4.0-10.0)
[2023-06-18 07:15] VITALS: BP 172/90
[2023-06-18 07:20] LABS: ALBUMIN 2.3 G/DL (3.2-5.2); ALKALINE PHOSPHATASE 104 U/L (46-116); ALT/SGPT 24 U/L (7.0-40); AST/SGOT 31 U/L (<34); BILIRUBIN,TOTAL 0.7 MG/DL (0.3-1.2); BLOOD UREA NITROGEN 12 MG/DL (9-23); CALCIUM LEVEL 7.8 MG/DL (8.3-10.6); CARBON DIOXIDE LEVEL 28 MMOL/L (20-31); CHLORIDE LEVEL 104 MMOL/L (98-107); CREATININE FOR GFR 0.72 MG/DL (0.70-1.30); GLOMERULAR FILTRATION RATE > 60.0 (>42); GLUCOSE, FASTING 94 MG/DL (74-106); MAGNESIUM LEVEL 1.6 MG/DL (1.8-2.4); POTASSIUM SERUM 3.3 MMOL/L (3.5-5.1); SODIUM LEVEL 143 MMOL/L (136-145); TOTAL PROTEIN 5.6 G/DL (5.7-8.2)
[2023-06-18] MEDS: INSULIN LISPRO (NovoLOG) PER UNIT SC SCH ×4 (07:30→20:18)
[2023-06-18] MEDS ORDERED: MAG SULF 1GM/100ML (MAG RUN) 1 GM in IV 1 EA IV ONE (08:50)
[2023-06-18] MEDS ORDERED: LevoFLOXacin 750 MG TABLET PO ONE (08:50)
[2023-06-18] MEDS: APIXABAN 5 MG TAB (ELIQUIS) PO SCH ×2 (08:59→20:17)
[2023-06-18] MEDS: ASPIRIN 81MG ENTERIC TABLET PO SCH (08:59)
[2023-06-18] MEDS: PREGABALIN 100 MG CAP (LYRICA) PO SCH ×2 (08:59→20:17)
[2023-06-18] MEDS: POTASSIUM CHLORIDE 10MEQ SR TABLET PO SCH ×2 (08:59→20:17)
[2023-06-18] MEDS: TAMSULOSIN 0.4 MG CAP PO SCH (08:59)
[2023-06-18] MEDS: LEVEMIR (INSULIN DETEMIR) 1 UNITS/0.01ML SC SCH (09:00)
[2023-06-18] MEDS: MAGNESIUM OXIDE 400MG TAB (MAG-OX) PO SCH ×2 (09:31→20:17)
[2023-06-18] MEDS ORDERED: NYSTATIN 100,000 UNITS/GM TOPICAL PWD 15GM TOP PRN (10:20)
[2023-06-18 14:00] VITALS: BP 146/94; TEMP 97.7; O2SAT 95
[2023-06-18 19:40] VITALS: BP 149/94; TEMP 98.1; O2SAT 92
[2023-06-18] MEDS: ATORVASTATIN 20 MG TAB PO SCH (20:17)
[2023-06-19 05:00] VITALS: BP 152/89; TEMP 98.6; O2SAT 92
[2023-06-19] MEDS: LevoFLOXacin 750 MG TABLET PO SCH (05:18)
[2023-06-19] MEDS: ACETAMINOPHEN TAB 650MG DOSE (2X325MG) PO PRN (05:22)
[2023-06-19 06:35] LABS: BASO % 0.4 % (0.0-1.0); EOS # 0.5 10^3/uL (0.0-0.5); EOS % 6.4 % (0.0-3.0); HEMATOCRIT 37.1 % (42.0-52.0); HEMOGLOBIN 11.9 g/dl (13.5-17.5); LYMPH # 1.2 10^3/uL (1.5-5.0); LYMPH % 15.5 % (24.0-44.0); MEAN CORPUSCULAR HGB CONC 32.1 g/dl (32.0-36.5); MEAN CORPUSCULAR VOLUME 90.5 fl (80.0-96.0); MONO # 0.8 10^3/uL (0.0-0.8); MONO % 11.1 % (2.0-8.0); NEUTROPHILS % 66.2 % (36.0-66.0); PLATELET COUNT, AUTOMATED 179 10^3/uL (150-450); WHITE BLOOD COUNT 7.5 10^3/uL (4.0-10.0)
[2023-06-19 07:00] LABS: ALBUMIN 2.2 G/DL (3.2-5.2); ALKALINE PHOSPHATASE 102 U/L (46-116); ALT/SGPT 29 U/L (7.0-40); AST/SGOT 29 U/L (<34); BILIRUBIN,TOTAL 0.6 MG/DL (0.3-1.2); BLOOD UREA NITROGEN 12 MG/DL (9-23); CALCIUM LEVEL 7.9 MG/DL (8.3-10.6); CARBON DIOXIDE LEVEL 32 MMOL/L (20-31); CHLORIDE LEVEL 106 MMOL/L (98-107); CREATININE FOR GFR 0.72 MG/DL (0.70-1.30); GLOMERULAR FILTRATION RATE > 60.0 (>42); GLUCOSE, FASTING 82 MG/DL (74-106); MAGNESIUM LEVEL 1.9 MG/DL (1.8-2.4); POTASSIUM SERUM 3.5 MMOL/L (3.5-5.1); SODIUM LEVEL 141 MMOL/L (136-145); TOTAL PROTEIN 5.5 G/DL (5.7-8.2)
[2023-06-19] MEDS: INSULIN LISPRO (NovoLOG) PER UNIT SC SCH ×3 (07:29→17:11)
[2023-06-19] MEDS: TAMSULOSIN 0.4 MG CAP PO SCH (08:27)
[2023-06-19] MEDS: PREGABALIN 100 MG CAP (LYRICA) PO SCH ×2 (08:27→20:11)
[2023-06-19] MEDS: POTASSIUM CHLORIDE 10MEQ SR TABLET PO SCH ×2 (08:27→20:12)
[2023-06-19] MEDS: ASPIRIN 81MG ENTERIC TABLET PO SCH (08:27)
[2023-06-19] MEDS: METOPROLOL TARTRATE 100MG TAB PO SCH ×2 (08:28→20:11)
[2023-06-19] MEDS: MAGNESIUM OXIDE 400MG TAB (MAG-OX) PO SCH ×2 (08:28→20:11)
[2023-06-19] MEDS: lisinopriL 40MG TAB PO SCH (08:28)
[2023-06-19] MEDS: LEVEMIR (INSULIN DETEMIR) 1 UNITS/0.01ML SC SCH (08:28)
[2023-06-19] MEDS: APIXABAN 5 MG TAB (ELIQUIS) PO SCH ×2 (08:28→20:11)
[2023-06-19] MEDS: ATORVASTATIN 20 MG TAB PO SCH (20:11)
[2023-06-20] MEDS: LevoFLOXacin 750 MG TABLET PO SCH (06:09)
[2023-06-20 06:45] VITALS: BP 155/77; TEMP 97.3; O2SAT 96
[2023-06-20] MEDS: PREGABALIN 100 MG CAP (LYRICA) PO SCH ×2 (09:15→20:37)
[2023-06-20] MEDS: INSULIN LISPRO (NovoLOG) PER UNIT SC SCH ×3 (09:15→18:11)
[2023-06-20] MEDS: TAMSULOSIN 0.4 MG CAP PO SCH (09:16)
[2023-06-20] MEDS: ASPIRIN 81MG ENTERIC TABLET PO SCH (09:16)
[2023-06-20] MEDS: MAGNESIUM OXIDE 400MG TAB (MAG-OX) PO SCH ×2 (09:16→20:36)
[2023-06-20] MEDS: lisinopriL 40MG TAB PO SCH (09:16)
[2023-06-20] MEDS: POTASSIUM CHLORIDE 10MEQ SR TABLET PO SCH ×2 (09:16→20:37)
[2023-06-20] MEDS: APIXABAN 5 MG TAB (ELIQUIS) PO SCH ×2 (09:16→20:36)
[2023-06-20] MEDS: METOPROLOL TARTRATE 100MG TAB PO SCH ×2 (09:17→20:36)
[2023-06-20] MEDS: LEVEMIR (INSULIN DETEMIR) 1 UNITS/0.01ML SC SCH (09:18)
[2023-06-20] MEDS: ATORVASTATIN 20 MG TAB PO SCH (20:36)
[2023-06-21 05:33] VITALS: BP 161/85; TEMP 97.7; O2SAT 98
[2023-06-21] MEDS: LevoFLOXacin 750 MG TABLET PO SCH (05:42)
[2023-06-21] MEDS: LEVEMIR (INSULIN DETEMIR) 1 UNITS/0.01ML SC SCH (08:12)
[2023-06-21] MEDS: INSULIN LISPRO (NovoLOG) PER UNIT SC SCH ×2 (08:12→12:46)
[2023-06-21 08:19] VITALS: BP 131/100
[2023-06-21] MEDS: METOPROLOL TARTRATE 100MG TAB PO SCH (08:19)
[2023-06-21] MEDS: TAMSULOSIN 0.4 MG CAP PO SCH (08:19)
[2023-06-21] MEDS: ASPIRIN 81MG ENTERIC TABLET PO SCH (08:19)
[2023-06-21] MEDS: APIXABAN 5 MG TAB (ELIQUIS) PO SCH (08:19)
[2023-06-21] MEDS: MAGNESIUM OXIDE 400MG TAB (MAG-OX) PO SCH (08:19)
[2023-06-21] MEDS: POTASSIUM CHLORIDE 10MEQ SR TABLET PO SCH (08:20)
[2023-06-21] MEDS: lisinopriL 40MG TAB PO SCH (08:20)
[2023-06-21] MEDS: PREGABALIN 100 MG CAP (LYRICA) PO SCH (08:20)
[2023-06-21] MEDS ORDERED: LEVO1TAB40 PO (14:10)
[2023-06-22] MEDS ORDERED: MAGNESIUM OXIDE 400MG TAB (MAG-OX) PO SCH (09:00)
[2023-06-22] MEDS ORDERED: POTASSIUM CHLORIDE 10MEQ SR TABLET PO SCH (09:00)
[2023-06-26] MEDS ORDERED: FURO40TA2 (15:51)
[2023-06-26] MEDS ORDERED: FARX1TAB3 PO (15:51)
[2023-06-26] MEDS ORDERED: HYDR12.55 (15:51)
== END 2023-06-21 14:50 | DRG 699 ==
LOC: EDBD 11:00 → M ED 11:00 → M ED INP 16:41 → ENRESERV 19:57 → M MS5PR 21:14
PROVIDERS: ADMIT Student in an Organized Health Care Education/Training Program; ATTEND Internal Medicine Nephrology
DX: T83.511A Infection and inflammatory reaction due to indwelling urethral catheter, initial encounter (principal); I50.32 Chronic diastolic (congestive) heart failure; Z68.41 Body mass index [BMI] 40.0-44.9, adult; C77.2 Secondary and unspecified malignant neoplasm of intra-abdominal lymph nodes; N13.30 Unspecified hydronephrosis; N39.0 Urinary tract infection, site not specified; C61 Malignant neoplasm of prostate; E11.22 Type 2 diabetes mellitus with diabetic chronic kidney disease; I11.0 Hypertensive heart disease with heart failure; E78.5 Hyperlipidemia, unspecified; E66.01 Morbid (severe) obesity due to excess calories; K76.0 Fatty (change of) liver, not elsewhere classified; M10.9 Gout, unspecified; K57.30 Diverticulosis of large intestine without perforation or abscess without bleeding; R29.6 Repeated falls; E87.6 Hypokalemia; E83.42 Hypomagnesemia; R26.89 Other abnormalities of gait and mobility; Z86.711 Personal history of pulmonary embolism; D64.9 Anemia, unspecified; K64.8 Other hemorrhoids; K80.20 Calculus of gallbladder without cholecystitis without obstruction; M43.06 Spondylolysis, lumbar region; Z91.013 Allergy to seafood; Z88.8 Allergy status to other drugs, medicaments and biological substances; Z79.82 Long term (current) use of aspirin; Z79.899 Other long term (current) drug therapy; Y84.6 Urinary catheterization as the cause of abnormal reaction of the patient, or of later complication, without mention of misadventure at the time of the procedure

== ENCOUNTER → 2023-06-24 | Outpatient (REF) | payer MEDICARE, MEDICAID ==
[~2023-06-24] MED LIST changes: +LEVO1TAB40 PO; +OXYB5TAB10 PO; +TAMS1CAP17 PO
[2023-06-24 08:31] LABS: HEMATOCRIT 36.6 % (42.0-52.0); HEMOGLOBIN 11.9 g/dl (13.5-17.5); MEAN CORPUSCULAR HEMOGLOBIN 28.7 pg (27.0-33.0); MEAN CORPUSCULAR HGB CONC 32.5 g/dl (32.0-36.5); MEAN CORPUSCULAR VOLUME 88.2 fl (80.0-96.0); PLATELET COUNT, AUTOMATED 276 10^3/uL (150-450); RED BLOOD COUNT 4.15 10^6/uL (4.30-6.10); WHITE BLOOD COUNT 10.3 10^3/uL (4.0-10.0)
[2023-06-24 09:11] LABS: ALBUMIN 2.5 G/DL (3.2-5.2); ALKALINE PHOSPHATASE 107 U/L (46-116); ALT/SGPT 36 U/L (7.0-40); AST/SGOT 23 U/L (<34); BILIRUBIN,TOTAL 0.6 MG/DL (0.3-1.2); BLOOD UREA NITROGEN 9 MG/DL (9-23); CALCIUM LEVEL 8.5 MG/DL (8.3-10.6); CARBON DIOXIDE LEVEL 29 MMOL/L (20-31); CHLORIDE LEVEL 107 MMOL/L (98-107); CREATININE FOR GFR 0.65 MG/DL (0.70-1.30); GLOMERULAR FILTRATION RATE > 60.0 (>42); GLUCOSE, FASTING 130 MG/DL (74-106); POTASSIUM SERUM 3.5 MMOL/L (3.5-5.1); SODIUM LEVEL 145 MMOL/L (136-145); TOTAL PROTEIN 6.2 G/DL (5.7-8.2)
== END ==
LOC: SKLAB7 07:33
PROVIDERS: ATTEND Internal Medicine
DX: Z01.818 Encounter for other preprocedural examination (principal); R94.31 Abnormal electrocardiogram [ECG] [EKG]

== ENCOUNTER 2023-06-27 08:01 | Day surgery (SDC) | payer MEDICARE, MEDICAID ==
[~2023-06-27] VITALS: Ht 170.2 cm; Wt 122.7 kg
[~2023-06-27 08:01] MED LIST changes: +FURO40TA2; +HYDR12.55; -PREG100C PO; +PREG100C2 PO
[2023-06-27] MEDS ORDERED: LR 1,000 ML IV SCH ×2 (08:35→11:55)
[2023-06-27] MEDS ORDERED: INSULIN LISPRO (NovoLOG) PER UNIT SC PRN ×2 (08:35→11:55)
[2023-06-27] MEDS ORDERED: LEVEMIR (INSULIN DETEMIR) 1 UNITS/0.01ML SC ONE (08:40)
[2023-06-27] MEDS ORDERED: ceFAZolin SOD 1 GM in D5W MINI-BAG PLUS 50 ML IV ONE (08:55)
[2023-06-27] MEDS ORDERED: ceFAZolin SOD 2 GM in IV 1 EA IV ONE (08:55)
[2023-06-27] MEDS ORDERED: MIDAZOLAM INJ 2MG/2ML VIAL As Ordered ONE (10:26)
[2023-06-27] MEDS ORDERED: propofoL 200 MG/20 ML VIAL As Ordered ONE (10:26)
[2023-06-27] MEDS ORDERED: fentaNYL 100 MCG/2 ML INJECTION As Ordered ONE (10:26)
[2023-06-27] MEDS ORDERED: LIDOCAINE 2% 100MG/5ML SDV (FOR ANES.) As Ordered ONE (10:26)
[2023-06-27] MEDS ORDERED: ACETAMINOPHEN 1000MG 100ML IV BAG As Ordered ONE (11:30)
[2023-06-27] MEDS ORDERED: ONDANSETRON 4MG 2ML VIAL As Ordered ONE (11:32)
[2023-06-27] MEDS ORDERED: oxyCODONE 5MG TAB PO PRN (11:55)
[2023-06-27] MEDS ORDERED: fentaNYL 100 MCG/2 ML INJECTION IV PRN (11:55)
[2023-06-27] MEDS ORDERED: ONDANSETRON 4MG 2ML VIAL IV PRN (11:55)
[2023-06-27] MEDS ORDERED: HYDROMORPHONE HCL 0.5 MG/ 0.5 ML SYRINGE IV PRN (11:55)
[2023-06-27] MEDS ORDERED: BACT800T5 PO (12:04)
[2023-06-27] MEDS ORDERED: OXYB5TAB10 PO (12:04)
[2023-06-27] MEDS ORDERED: PYRI1TAB5 PO (12:04)
[2023-06-27 13:34] VITALS: BP 125/72; TEMP 97.6; O2SAT 96
[2023-06-28] MEDS ORDERED: PYRI1TAB5 PO (21:14)
[2023-06-28] MEDS ORDERED: METO100T5 PO (21:14)
[2023-06-28] MEDS ORDERED: OXYB5TAB10 PO (21:14)
[2023-06-28] MEDS ORDERED: PRED5TA PO (21:14)
[2023-06-28] MEDS ORDERED: [UNRECOGNIZED DRUG - CODE] PO (21:14)
[2023-06-28] MEDS ORDERED: PREG100CA PO (21:16)
[2023-06-28] MEDS ORDERED: FLEEENE12 PR (21:19)
[2023-06-28] MEDS ORDERED: MOM30SS2 PO (21:19)
[2023-06-28] MEDS ORDERED: ASPI81TA26 PO (21:19)
[2023-06-28] MEDS ORDERED: ELIQ5TAB PO (21:19)
== END 2023-06-27 13:34 | disposition home or self-care (01) ==
LOC: M SDC 08:01
PROVIDERS: ATTEND Urology
DX: N40.1 Benign prostatic hyperplasia with lower urinary tract symptoms (principal); R33.8 Other retention of urine; C61 Malignant neoplasm of prostate; E11.9 Type 2 diabetes mellitus without complications; E66.9 Obesity, unspecified; Z68.42 Body mass index [BMI] 45.0-49.9, adult; Z79.01 Long term (current) use of anticoagulants; Z79.4 Long term (current) use of insulin; Z79.82 Long term (current) use of aspirin; Z79.84 Long term (current) use of oral hypoglycemic drugs; Z79.899 Other long term (current) drug therapy; Z88.8 Allergy status to other drugs, medicaments and biological substances; Z91.013 Allergy to seafood

== ENCOUNTER 2023-06-28 12:01 | Inpatient (IN) | payer MEDICARE, MEDICAID ==
[~2023-06-28] VITALS: Ht 170.2 cm; Wt 128.4 kg
[~2023-06-28 12:01] MED LIST changes: +BACT800T5 PO; +PREG100C PO; -PREG100C2 PO; +PYRI1TAB5 PO
[2023-06-28 14:26] LABS: BASO # 0.1 10^3/uL (0.0-0.2); BASO % 0.2 % (0.0-1.0); EOS # 0.1 10^3/uL (0.0-0.5); EOS % 0.2 % (0.0-3.0); HEMATOCRIT 39.8 % (42.0-52.0); HEMOGLOBIN 12.7 g/dl (13.5-17.5); LYMPH # 1.1 10^3/uL (1.5-5.0); LYMPH % 4.5 % (24.0-44.0); MEAN CORPUSCULAR HEMOGLOBIN 28.8 pg (27.0-33.0); MEAN CORPUSCULAR HGB CONC 31.9 g/dl (32.0-36.5); MEAN CORPUSCULAR VOLUME 90.2 fl (80.0-96.0); MONO % 7.6 % (2.0-8.0); NEUTROPHILS # 20.8 10^3/uL (1.5-8.5); NEUTROPHILS % 86.8 % (36.0-66.0); PLATELET COUNT, AUTOMATED 349 10^3/uL (150-450); RED BLOOD COUNT 4.41 10^6/uL (4.30-6.10)
[2023-06-28] MEDS ORDERED: ACETAMINOPHEN TAB 650MG DOSE (2X325MG) PO ONE (14:50)
[2023-06-28 14:51] LABS: CALCIUM LEVEL 8.4 MG/DL (8.3-10.6); CREATININE FOR GFR 1.94 MG/DL (0.70-1.30); GLOMERULAR FILTRATION RATE 35.9 (>42)
[2023-06-28 15:06] LABS: MONO # 1.8 10^3/uL (0.0-0.8)
[2023-06-28] MEDS ORDERED: MOM 30ML SUSPENSION UDC PO PRN (17:00)
[2023-06-28] MEDS ORDERED: MAALOX 30 ML SUSP *UDC PO PRN (17:00)
[2023-06-28] MEDS ORDERED: NS 1,000 ML IV SCH (17:10)
[2023-06-28] MEDS ORDERED: MED REC IN PROGRESS XX SCH (17:20)
[2023-06-28] MEDS ORDERED: DEXTROSE 50% 50ML SYRINGE IV PRN (17:30)
[2023-06-28] MEDS ORDERED: GLUCAGON INJ 1MG VIAL SC PRN (17:30)
[2023-06-28] MEDS: INSULIN LISPRO (NovoLOG) PER UNIT SC SCH ×2 (17:30→20:57)
[2023-06-28] MEDS ORDERED: GLUCOSE 4GM CHEW TABLET PO PRN (17:30)
[2023-06-28] MEDS: PIPERACILLIN/TAZOBACTAM SOD 3.375 GM in D5W MINI-BAG PLUS 50 ML IV SCH ×2 (17:51→23:57)
[2023-06-28] MEDS ORDERED: METO100T5 PO (21:14)
[2023-06-28] MEDS ORDERED: OXYB5TAB10 PO (21:14)
[2023-06-28] MEDS ORDERED: [UNRECOGNIZED DRUG - CODE] PO (21:14)
[2023-06-28] MEDS ORDERED: PYRI1TAB5 PO (21:14)
[2023-06-28] MEDS ORDERED: PRED5TA PO (21:14)
[2023-06-28] MEDS ORDERED: PREG100CA PO (21:16)
[2023-06-28] MEDS ORDERED: MOM30SS2 PO (21:19)
[2023-06-28] MEDS ORDERED: ELIQ5TAB PO (21:19)
[2023-06-28] MEDS ORDERED: ASPI81TA26 PO (21:19)
[2023-06-28] MEDS ORDERED: FLEEENE12 PR (21:19)
[2023-06-28] MEDS ORDERED: HOME MED LIST COMPLETE! XX SCH (21:20)
[2023-06-29] VITALS (15 sets, daily range): BP systolic 115–139; BP diastolic 60–78; TEMP 96.9–97.9; O2SAT 89–96
[2023-06-29 05:23] LABS: BASO # 0.1 10^3/uL (0.0-0.2); BASO % 0.4 % (0.0-1.0); EOS # 0.4 10^3/uL (0.0-0.5); EOS % 3.1 % (0.0-3.0); HEMATOCRIT 34.3 % (42.0-52.0); LYMPH # 1.3 10^3/uL (1.5-5.0); LYMPH % 9.5 % (24.0-44.0); MEAN CORPUSCULAR HEMOGLOBIN 29.3 pg (27.0-33.0); MEAN CORPUSCULAR HGB CONC 32.1 g/dl (32.0-36.5); MEAN CORPUSCULAR VOLUME 91.2 fl (80.0-96.0); MONO % 6.9 % (2.0-8.0); NEUTROPHILS # 10.9 10^3/uL (1.5-8.5); NEUTROPHILS % 79.5 % (36.0-66.0); RED BLOOD COUNT 3.76 10^6/uL (4.30-6.10); WHITE BLOOD COUNT 13.7 10^3/uL (4.0-10.0)
[2023-06-29] MEDS: PIPERACILLIN/TAZOBACTAM SOD 3.375 GM in D5W MINI-BAG PLUS 50 ML IV SCH ×3 (05:27→17:43)
[2023-06-29 05:30] LABS: PLATELET COUNT, AUTOMATED 242 10^3/uL (150-450)
[2023-06-29 05:37] LABS: CALCIUM LEVEL 7.8 MG/DL (8.3-10.6); CREATININE FOR GFR 2.32 MG/DL (0.70-1.30); GLOMERULAR FILTRATION RATE 29.2 (>42); POTASSIUM SERUM 3.7 MMOL/L (3.5-5.1)
[2023-06-29 08:52] LABS: ALBUMIN 2.1 G/DL (3.2-5.2); BILIRUBIN,DIRECT 0.3 MG/DL (<0.4); BILIRUBIN,TOTAL 0.5 MG/DL (0.3-1.2); TOTAL PROTEIN 5.1 G/DL (5.7-8.2)
[2023-06-29] MEDS ORDERED: TAMSULOSIN 0.4 MG CAP PO SCH (09:00)
[2023-06-29] MEDS ORDERED: predniSONE 5 MG TAB PO SCH (09:00)
[2023-06-29] MEDS: INSULIN LISPRO (NovoLOG) PER UNIT SC SCH ×4 (09:35→21:00)
[2023-06-29] MEDS: LEVEMIR (INSULIN DETEMIR) 1 UNITS/0.01ML SC SCH (09:53)
[2023-06-29] MEDS: PREGABALIN 100 MG CAP (LYRICA) PO SCH ×2 (09:54→20:46)
[2023-06-29] MEDS: NS 1,000 ML IV SCH ×2 (11:56→20:46)
[2023-06-29] MEDS: LACTULOSE 20GM/30ML SYRUP UDC PO SCH ×3 (12:02→20:46)
[2023-06-29] MEDS ORDERED: MOM 30ML SUSPENSION UDC PO PRN (12:55)
[2023-06-29 13:21] LABS: INR 1.24; PROTHROMBIN TIME 15.3 SECONDS (12.5-14.5)
[2023-06-29 13:22] LABS: PARTIAL THROMBOPLASTIN TIME 30.1 SECONDS (24.8-34.2)
[2023-06-29] MEDS: ZYTIGA 250 MG PO SCH (17:43)
[2023-06-29] MEDS: METOPROLOL TARTRATE 100MG TAB PO SCH (20:46)
[2023-06-29] MEDS ORDERED: ATORVASTATIN 20 MG TAB PO SCH (21:00)
[2023-06-30] VITALS (74 sets, daily range): BP systolic 78–141; BP diastolic 45–98; TEMP 96.5–103.9; O2SAT 64–100
[2023-06-30] MEDS: LACTULOSE 20GM/30ML SYRUP UDC PO SCH (00:39)
[2023-06-30] MEDS: PIPERACILLIN/TAZOBACTAM SOD 3.375 GM in D5W MINI-BAG PLUS 50 ML IV SCH ×2 (00:39→05:16)
[2023-06-30] MEDS ORDERED: ONDANSETRON 4MG 2ML VIAL IV ONE ×2 (02:00)
[2023-06-30] MEDS ORDERED: HYDROMORPHONE HCL 0.5 MG/ 0.5 ML SYRINGE IV PRN (03:00)
[2023-06-30] MEDS ORDERED: ALBUTEROL SULFATE 2.5MG/0.5ML INH NEB SOLN NEB ONE ×2 (03:00)
[2023-06-30] MEDS: IPRATROPIUM 0.5MG/ALBUTEROL 2.5MG INH SOL UD 3ML (DUONEB) NEB SCH ×3 (03:11→14:00)
[2023-06-30 03:38] LABS: BASO # 0.1 10^3/uL (0.0-0.2); BASO % 0.3 % (0.0-1.0); EOS # 0.5 10^3/uL (0.0-0.5); EOS % 2.6 % (0.0-3.0); HEMATOCRIT 41.8 % (42.0-52.0); HEMOGLOBIN 12.9 g/dl (13.5-17.5); LYMPH # 0.9 10^3/uL (1.5-5.0); LYMPH % 4.8 % (24.0-44.0); MEAN CORPUSCULAR HEMOGLOBIN 28.7 pg (27.0-33.0); MEAN CORPUSCULAR HGB CONC 30.9 g/dl (32.0-36.5); MEAN CORPUSCULAR VOLUME 92.9 fl (80.0-96.0); MONO # 0.4 10^3/uL (0.0-0.8); MONO % 2.3 % (2.0-8.0); NEUTROPHILS # 16.4 10^3/uL (1.5-8.5); NEUTROPHILS % 89.2 % (36.0-66.0); WHITE BLOOD COUNT 18.4 10^3/uL (4.0-10.0)
[2023-06-30 03:43] LABS: PLATELET COUNT, AUTOMATED 393 10^3/uL (150-450)
[2023-06-30 04:06] LABS: ALBUMIN 2.4 G/DL (3.2-5.2); BILIRUBIN,TOTAL 0.6 MG/DL (0.3-1.2); CALCIUM LEVEL 8.9 MG/DL (8.3-10.6); CREATININE FOR GFR 1.47 MG/DL (0.70-1.30); GLOMERULAR FILTRATION RATE 49.5 (>42); MAGNESIUM LEVEL 2.4 MG/DL (1.8-2.4); POTASSIUM SERUM 3.6 MMOL/L (3.5-5.1); TOTAL PROTEIN 6.1 G/DL (5.7-8.2)
[2023-06-30] MEDS: NS 1,000 ML IV SCH ×2 (05:15→10:54)
[2023-06-30] MEDS ORDERED: NS 1,000 ML IV ONE ×3 (05:20→09:45)
[2023-06-30] MEDS ORDERED: ALBUTEROL SULFATE 2.5MG/0.5ML INH NEB SOLN NEB PRN (06:00)
[2023-06-30] MEDS: METOPROLOL TARTRATE 100MG TAB PO SCH (08:02)
[2023-06-30] MEDS: ZYTIGA 250 MG PO SCH (08:22)
[2023-06-30] MEDS: INSULIN LISPRO (NovoLOG) PER UNIT SC SCH (08:31)
[2023-06-30] MEDS: LEVEMIR (INSULIN DETEMIR) 1 UNITS/0.01ML SC SCH (08:31)
[2023-06-30] MEDS ORDERED: BISACODYL 10MG SUPP PR ONE (08:40)
[2023-06-30] MEDS ORDERED: SENNA 8.6 MG TAB (SENOKOT) NG ONE (08:40)
[2023-06-30] MEDS ORDERED: GLYCERIN ADULT SUPP PR ONE (08:40)
[2023-06-30] MEDS ORDERED: DOCUSATE SOD LIQ 100MG/10ML UDC NG ONE (08:40)
[2023-06-30] MEDS ORDERED: methylPREDNISolone 40MG 1ML VIAL IV SCH ×2 (09:00)
[2023-06-30] MEDS ORDERED: PANTOPRAZOLE 40MG VIAL IV SCH (09:00)
[2023-06-30] MEDS ORDERED: CHLORHEXIDINE GLUCONATE 0.12 % 15ML UDC (PERIDEX ORAL RINSE) MT SCH (09:00)
[2023-06-30] MEDS ORDERED: ACETAMINOPHEN *IV* 1,000 MG in IV 1 EA IV ONE (10:00)
[2023-06-30] MEDS ORDERED: HYDROCORTISONE 100MG/2ML VIAL IV ONE (11:00)
[2023-06-30] MEDS ORDERED: SODIUM BICARBONATE 8.4% INJ 50ML SYRINGE IV STA (11:05)
[2023-06-30] MEDS ORDERED: NOREPINEPHRINE 4MG IN D5 250ML 4 MG in IV 1 EA IV SCH ×2 (11:05)
[2023-06-30] MEDS ORDERED: MORPHINE 2 MG/ML 1ML VIAL IV PRN (11:55)
[2023-06-30] MEDS ORDERED: ONDANSETRON 4MG 2ML VIAL IV PRN (11:55)
[2023-06-30] MEDS ORDERED: LORazepam 2 MG/ML 1ML VIAL IV PRN (11:55)
[2023-06-30] MEDS ORDERED: HYDROCORTISONE 100MG/2ML VIAL IV SCH (19:00)
== END 2023-06-30 15:02 | disposition expired | DRG 919 ==
LOC: M ED 12:01 → EDBD 12:01 → M ED INP 16:24 → ENRESERV 06-29 02:03 → M PCU 06-29 02:26 → M ICU 06-30 03:48
PROVIDERS: ADMIT Student in an Organized Health Care Education/Training Program; ATTEND Student in an Organized Health Care Education/Training Program
DX: N99.840 Postprocedural hematoma of a genitourinary system organ or structure following a genitourinary system procedure (principal); G93.41 Metabolic encephalopathy; A41.9 Sepsis, unspecified organism; J69.0 Pneumonitis due to inhalation of food and vomit; J96.01 Acute respiratory failure with hypoxia; N13.30 Unspecified hydronephrosis; Z68.41 Body mass index [BMI] 40.0-44.9, adult; I50.32 Chronic diastolic (congestive) heart failure; Z68.42 Body mass index [BMI] 45.0-49.9, adult; R57.9 Shock, unspecified; E27.40 Unspecified adrenocortical insufficiency; N13.4 Hydroureter; E87.20 Acidosis, unspecified; K56.7 Ileus, unspecified; K91.89 Other postprocedural complications and disorders of digestive system; N17.9 Acute kidney failure, unspecified; C77.9 Secondary and unspecified malignant neoplasm of lymph node, unspecified; I11.0 Hypertensive heart disease with heart failure; C61 Malignant neoplasm of prostate; E66.01 Morbid (severe) obesity due to excess calories; Z86.711 Personal history of pulmonary embolism; E78.5 Hyperlipidemia, unspecified; Z79.899 Other long term (current) drug therapy; Z79.82 Long term (current) use of aspirin; Z91.013 Allergy to seafood; Z88.8 Allergy status to other drugs, medicaments and biological substances; E11.40 Type 2 diabetes mellitus with diabetic neuropathy, unspecified; Z92.21 Personal history of antineoplastic chemotherapy; Z79.52 Long term (current) use of systemic steroids; Z51.5 Encounter for palliative care